=== PATIENT | female | born 2000 | race Caucasian/White ===

== ENCOUNTER 2021-02-28 23:11 | Emergency (ER) | payer OTHER ==
[~2021-02-28] VITALS: Ht 157.5 cm; Wt 59.0 kg
[2021-02-28 23:29] VITALS: BP 123/66
[2021-02-28] MEDS ORDERED: ONDANSETRON 4 MG ODT PO ONE (23:35)
--- NOTE | 2021-02-28 23:35 | NUR ---
PT TAKEN TO CHAIR C
--- NOTE | 2021-03-01 00:32 | NUR ---
PT MOVED TO BED #3
[2021-03-01] MEDS ORDERED: ONDA8TAB87 PO (02:02)
[2021-03-01 02:05] VITALS: BP 123/66
--- NOTE | 2021-03-01 02:05 | NUR ---
Patient discharged with v/s stable. Written and verbal after care instructions given and explained. Patient alert, oriented and verbalized understanding of instructions. Ambulatory with steady gait. All questions addressed prior to discharge. ID band removed. Patient advised to follow up with PMD. Rx of ONDANSETRON given. Patient educated on indication of medication including possible reaction and side effects. Opportunity to ask questions provided and answered.
== END 2021-03-01 02:05 | disposition home or self-care (01) ==
LOC: MED 23:11
DX: R42 Dizziness and giddiness (principal); R11.2 Nausea with vomiting, unspecified
CPT/HCPCS: 81002; 81025; 99283; Q0162